=== PATIENT | male | born 1990 | race African-American/Black ===

== ENCOUNTER 2020-09-20 12:17 | Inpatient (IN) | payer MEDICAID ==
[~2020-09-20] VITALS: Ht 182.9 cm; Wt 117.9 kg
[2020-09-20] MEDS ORDERED: BUPR-93 PO (12:30)
[2020-09-20 13:07] LABS: EOSINOPHILS % (AUTO) 1.7 % (1.0-6.0); HEMATOCRIT 40.5 % (41-53); HEMOGLOBIN 13.3 g/dL (13.5-17.5); LYMPHOCYTES # (AUTO) 1.3 K/uL (1.0-4.8); LYMPHOCYTES % (AUTO) 23.9 % (22.0-44.0); MEAN CORPUSCULAR HEMOGLOBIN 25.1 pg (26.0-34.0); MEAN CORPUSCULAR HGB CONC 32.9 G/dL (31.0-37.0); MEAN CORPUSCULAR VOLUME 76 fL (80-100); MONOCYTES # (AUTO) 0.5 K/uL (0.1-1.0); MONOCYTES % (AUTO) 9.5 % (2.0-9.0); NEUTROPHILS # (AUTO) 3.6 K/uL (1.8-7.7); NEUTROPHILS % (AUTO) 63.9 % (40.0-70.0); PLATELET COUNT (AUTO) 363 K/uL (150-450); RED BLOOD CELL COUNT(AUTO) 5.31 MIL/uL (4.50-5.90); RED CELL DISTRIBUTION WIDTH 13.9 % (11.5-14.5)
[2020-09-20 13:11] LABS: COVID AG,FIA SOURCE NASOPHARYNGEAL
[2020-09-20 13:27] LABS: ANION GAP 9 mmol/L (8-16); CALCIUM, TOTAL 9.4 mg/dL (8.8-10.5); CARBON DIOXIDE 27 mmol/L (22-29); CHLORIDE 101 mmol/L (98-107); CREATININE 1.08 mg/dL (0.60-1.30); GLOMERULAR FILTR. RATE CALC > 60 mL/min (>60); GLUCOSE,RANDOM 105 mg/dL (70-110); POTASSIUM 3.9 mmol/L (3.5-5.1); SODIUM SERUM 137 mmol/L (136-145); UREA NITROGEN, BLOOD 10 mg/dL (7-18)
[2020-09-20 13:34] LABS: ALANINE AMINOTRANSFERASE 93 U/L (12-78); ALBUMIN 3.9 g/dL (3.4-5.0); ALKALINE PHOSPHATASE 60 U/L (46-116); ASPARTATE AMINOTRANSFERASE 67 U/L (15-37); BILIRUBIN,TOTAL 0.5 mg/dL (0.1-1.0); TOTAL PROTEIN, SERUM 7.8 g/dL (6.4-8.2)
[2020-09-20 14:24] LABS: AMPHET/METH SCREEN,URINE NEGATIVE (NEGATIVE); BARBITURATE SCREEN, URINE NEGATIVE (NEGATIVE); BENZODIAZEPINES SCREEN,URINE NEGATIVE (NEGATIVE); CANNABINOID SCREEN,URINE NEGATIVE (NEGATIVE); COCAINE SCREEN,URINE NEGATIVE (NEGATIVE); METHADONE SCREEN, URINE NEGATIVE (NEGATIVE); OPIATE SCREEN,URINE NEGATIVE (NEGATIVE)
[2020-09-20 14:26] LABS: PHENCYCLIDINE SCREEN,URINE NEGATIVE (NEGATIVE)
[2020-09-20] MEDS ORDERED: METF-961 PO (16:35)
[2020-09-20] MEDS ORDERED: INFLUENZA VIRUS VACCINE QVS 2020-21 (6MO+)/PF 60 MCG/0.5 ML SYRINGE IM ONE (16:45)
[2020-09-20] MEDS: LORazepam 2 MG TABLET PO PRN (17:21)
[2020-09-20] MEDS: QUEtiapine FUMARATE 100 MG TABLET PO PRN (17:28)
[2020-09-21 03:06] VITALS: BP 148/74
[2020-09-21] MEDS ORDERED: ONDANSETRON HCL 4 MG TABLET PO PRN (08:00)
[2020-09-21] MEDS ORDERED: GuaiFENesin/D-METHORPHAN [SUGAR-FREE] 200-20MG/10 ML SYRUP UDCUP PO PRN (08:00)
[2020-09-21] MEDS ORDERED: PETROLATUM,WHITE 28 GM JELLY TP PRN (08:00)
[2020-09-21] MEDS ORDERED: ACETAMINOPHEN 325 MG TABLET PO PRN (08:00)
[2020-09-21] MEDS ORDERED: ALBUTEROL SULFATE HFA 90 MCG/PUFF 8 GM INHALER IH PRN (08:00)
[2020-09-21] MEDS ORDERED: CloNIDine HCL 0.1 MG TABLET PO PRN (08:00)
[2020-09-21] MEDS ORDERED: DOCUSATE SODIUM 100 MG CAPSULE PO PRN (08:00)
[2020-09-21] MEDS ORDERED: LOPERAMIDE HCL 2 MG CAPSULE PO PRN (08:00)
[2020-09-21] MEDS ORDERED: NICOTINE 14 MG/24 HOUR PATCH TD PRN (08:00)
[2020-09-21] MEDS ORDERED: IBUPROFEN 400 MG TABLET PO PRN (08:00)
[2020-09-21] MEDS ORDERED: MAGNESIUM HYDROXIDE SUSPENSION 30 ML UDCUP PO PRN (08:00)
[2020-09-21 08:21] LABS: BASOPHILS % (AUTO) 0.8 % (0.0-2.0); EOSINOPHILS % (AUTO) 3.1 % (1.0-6.0); HEMATOCRIT 41.4 % (41-53); HEMOGLOBIN 13.4 g/dL (13.5-17.5); LYMPHOCYTES # (AUTO) 1.2 K/uL (1.0-4.8); LYMPHOCYTES % (AUTO) 23.2 % (22.0-44.0); MEAN CORPUSCULAR HEMOGLOBIN 25.3 pg (26.0-34.0); MEAN CORPUSCULAR HGB CONC 32.4 G/dL (31.0-37.0); MEAN CORPUSCULAR VOLUME 78 fL (80-100); MONOCYTES # (AUTO) 0.7 K/uL (0.1-1.0); MONOCYTES % (AUTO) 12.8 % (2.0-9.0); NEUTROPHILS # (AUTO) 3.1 K/uL (1.8-7.7); NEUTROPHILS % (AUTO) 60.1 % (40.0-70.0); PLATELET COUNT (AUTO) 370 K/uL (150-450); RED BLOOD CELL COUNT(AUTO) 5.31 MIL/uL (4.50-5.90); RED CELL DISTRIBUTION WIDTH 14.3 % (11.5-14.5)
[2020-09-21] MEDS: LORazepam 2 MG TABLET PO PRN ×2 (08:43→16:15)
[2020-09-21] MEDS: QUEtiapine FUMARATE 100 MG TABLET PO PRN (08:43)
[2020-09-21 08:59] LABS: ALANINE AMINOTRANSFERASE 87 U/L (12-78); ALBUMIN 3.7 g/dL (3.4-5.0); ALKALINE PHOSPHATASE 59 U/L (46-116); ANION GAP 10 mmol/L (8-16); ASPARTATE AMINOTRANSFERASE 47 U/L (15-37); BILIRUBIN,TOTAL 0.4 mg/dL (0.1-1.0); CALCIUM, TOTAL 9.5 mg/dL (8.8-10.5); CARBON DIOXIDE 27 mmol/L (22-29); CHLORIDE 103 mmol/L (98-107); CHOL/HDL RATIO 3.1 (4.2-7.3); CHOLESTEROL 143 mg/dL (131-200); CREATININE 1.15 mg/dL (0.60-1.30); FREE T4 (FREE THYROXINE) 1.03 ng/dL (0.76-1.46); GLOMERULAR FILTR. RATE CALC > 60 mL/min (>60); GLUCOSE,RANDOM 106 mg/dL (70-110); HDL CHOLESTEROL 46 mg/dL (40-60); LDL CHOL (CALC.) 85 mg/dL (0-130); POTASSIUM 3.9 mmol/L (3.5-5.1); SODIUM SERUM 140 mmol/L (136-145); THYROID STIMULATING HORMONE 1.59 uIU/mL (0.36-3.74); TOTAL PROTEIN, SERUM 7.4 g/dL (6.4-8.2); TRIGLYCERIDES 62 mg/dL (15-150); UREA NITROGEN, BLOOD 11 mg/dL (7-18)
[2020-09-21 09:17] LABS: HEMOGLOBIN A1C 6.3 % (3.8-5.6)
[2020-09-21 10:07] VITALS: BP 124/75
[2020-09-21] MEDS: BuPROPion HCL XL 150 MG ER TABLET PO SCH (11:10)
[2020-09-21] MEDS: PALIPERIDONE 6 MG ER TABLET PO SCH (16:14)
[2020-09-21] MEDS: MetFORMIN HCL 850 MG TABLET PO SCH (17:00)
[2020-09-21] MEDS: DOCOSANOL 10% 2 GM CREAM TP PRN (18:01)
[2020-09-21] MEDS: QUEtiapine FUMARATE 100 MG TABLET PO SCH (20:18)
[2020-09-22] MEDS: DOCOSANOL 10% 2 GM CREAM TP PRN (04:31)
[2020-09-22] MEDS: MetFORMIN HCL 850 MG TABLET PO SCH ×2 (06:31→17:03)
[2020-09-22] MEDS: BuPROPion HCL XL 150 MG ER TABLET PO SCH (08:46)
[2020-09-22 09:22] VITALS: BP 140/84
[2020-09-22] MEDS: PALIPERIDONE 6 MG ER TABLET PO SCH (10:33)
[2020-09-22 16:27] VITALS: BP 130/82
[2020-09-22] MEDS: LORazepam 2 MG TABLET PO PRN (17:03)
[2020-09-22] MEDS: QUEtiapine FUMARATE 100 MG TABLET PO SCH (22:48)
[2020-09-23 01:01] VITALS: BP 109/61
[2020-09-23] MEDS: MetFORMIN HCL 850 MG TABLET PO SCH ×2 (06:26→17:07)
[2020-09-23] MEDS: BuPROPion HCL XL 150 MG ER TABLET PO SCH (08:56)
[2020-09-23 09:08] VITALS: BP 133/85
[2020-09-23] MEDS: PALIPERIDONE 6 MG ER TABLET PO SCH (11:10)
[2020-09-23] MEDS: DOCOSANOL 10% 2 GM CREAM TP PRN (15:49)
[2020-09-23 16:16] VITALS: BP 118/69
[2020-09-23] MEDS: LORazepam 2 MG TABLET PO PRN ×2 (17:07→21:55)
[2020-09-23] MEDS: QUEtiapine FUMARATE 100 MG TABLET PO SCH (20:04)
[2020-09-23] MEDS: ZOLPIDEM TARTRATE 10 MG TABLET PO PRN (21:55)
[2020-09-24 01:04] VITALS: BP 137/87
[2020-09-24] MEDS: MetFORMIN HCL 850 MG TABLET PO SCH ×2 (06:54→16:33)
[2020-09-24] MEDS: BuPROPion HCL XL 150 MG ER TABLET PO SCH (08:12)
[2020-09-24] MEDS: PALIPERIDONE 6 MG ER TABLET PO SCH (08:12)
[2020-09-24] MEDS: LORazepam 2 MG TABLET PO PRN ×2 (08:13→17:41)
[2020-09-24 09:02] VITALS: BP 123/90
[2020-09-24] MEDS: MAG HYDROX/AL HYDROX/SIMETH ES 30 ML SUSPENSION UDCUP PO PRN (14:34)
[2020-09-24 16:33] VITALS: BP_SYST 121; BP_SYST 146; BP_DIAS 81
[2020-09-24] MEDS: QUEtiapine FUMARATE 100 MG TABLET PO SCH (20:09)
[2020-09-25 01:35] VITALS: BP 115/68
[2020-09-25] MEDS: MetFORMIN HCL 850 MG TABLET PO SCH ×3 (06:12→17:00)
[2020-09-25] MEDS: BuPROPion HCL XL 150 MG ER TABLET PO SCH (08:06)
[2020-09-25] MEDS: PALIPERIDONE 6 MG ER TABLET PO SCH (08:06)
[2020-09-25] MEDS: LORazepam 2 MG TABLET PO PRN ×2 (08:06→21:52)
[2020-09-25 08:13] VITALS: BP 128/80
[2020-09-25 12:45] LABS: APPEARANCE,URINE CLEAR (CLEAR); BILIRUBIN,URINE NEGATIVE (NEGATIVE); GLUCOSE, URINE (UA) NEGATIVE (NEGATIVE); KETONES,URINE TRACE mg/dL (NEGATIVE); LEUKOCYTE ESTERASE ,URINE NEGATIVE (NEGATIVE); NITRATE,URINE NEGATIVE (NEGATIVE); OCCULT BLOOD,URINE NEGATIVE (NEGATIVE); PH,URINE 7.5 (5.0-8.0); PROTEIN,URINE TRACE (NEGATIVE); UROBILINOGEN,URINE 0.2 mg/dL (<=1.0)
[2020-09-25 12:52] LABS: AMPHET/METH SCREEN,URINE NEGATIVE (NEGATIVE); BARBITURATE SCREEN, URINE NEGATIVE (NEGATIVE); BENZODIAZEPINES SCREEN,URINE NEGATIVE (NEGATIVE); CANNABINOID SCREEN,URINE NEGATIVE (NEGATIVE); COCAINE SCREEN,URINE NEGATIVE (NEGATIVE); METHADONE SCREEN, URINE NEGATIVE (NEGATIVE); OPIATE SCREEN,URINE NEGATIVE (NEGATIVE)
[2020-09-25 12:57] LABS: PHENCYCLIDINE SCREEN,URINE NEGATIVE (NEGATIVE)
[2020-09-25 13:00] LABS: BACTERIA,URINE None Seen /HPF (None Seen); CALCIUM OXALATE CRYSTALS,UR Moderate /LPF (None Seen); RBC,URINE None Seen /HPF (0-2); SQUAMOUS EPITHELIAL CELL,UR Few /LPF (None Seen); WBC,URINE None Seen /HPF (0-5)
[2020-09-25] MEDS: MAG HYDROX/AL HYDROX/SIMETH ES 30 ML SUSPENSION UDCUP PO PRN (13:44)
[2020-09-25 16:14] VITALS: BP 124/68
[2020-09-25] MEDS: QUEtiapine FUMARATE 100 MG TABLET PO SCH (21:52)
[2020-09-25] MEDS: ZOLPIDEM TARTRATE 10 MG TABLET PO PRN (22:14)
[2020-09-26 05:11] VITALS: BP 118/67
[2020-09-26] MEDS: MetFORMIN HCL 850 MG TABLET PO SCH ×2 (06:36→16:21)
[2020-09-26 08:28] VITALS: BP 136/88
[2020-09-26] MEDS: BuPROPion HCL XL 150 MG ER TABLET PO SCH (08:45)
[2020-09-26] MEDS: PALIPERIDONE 6 MG ER TABLET PO SCH (08:45)
[2020-09-26] MEDS: LORazepam 2 MG TABLET PO PRN ×3 (08:46→20:28)
[2020-09-26 16:18] VITALS: BP 139/81
[2020-09-26] MEDS: QUEtiapine FUMARATE 100 MG TABLET PO SCH (20:28)
[2020-09-27 00:33] VITALS: BP 116/71
[2020-09-27] MEDS: MetFORMIN HCL 850 MG TABLET PO SCH ×2 (06:49→16:14)
[2020-09-27 08:19] VITALS: BP 146/84
[2020-09-27] MEDS: PALIPERIDONE 6 MG ER TABLET PO SCH (09:36)
[2020-09-27] MEDS: BuPROPion HCL XL 150 MG ER TABLET PO SCH (09:36)
[2020-09-27] MEDS: LORazepam 2 MG TABLET PO PRN ×2 (09:36→16:13)
[2020-09-27 17:07] VITALS: BP 145/89
[2020-09-27] MEDS: QUEtiapine FUMARATE 100 MG TABLET PO SCH (20:04)
[2020-09-28 06:34] VITALS: BP 129/82
[2020-09-28] MEDS: MetFORMIN HCL 850 MG TABLET PO SCH (06:58)
[2020-09-28] MEDS: BuPROPion HCL XL 150 MG ER TABLET PO SCH (08:10)
[2020-09-28] MEDS: PALIPERIDONE 6 MG ER TABLET PO SCH (08:10)
[2020-09-28 08:12] VITALS: BP 140/98
[2020-09-28] MEDS ORDERED: BUPR-93 PO (09:25)
[2020-09-28] MEDS ORDERED: PALI6TAB15 PO (09:26)
[2020-09-28] MEDS ORDERED: QUET100T PO (09:27)
== END 2020-09-28 10:20 | disposition home or self-care (01) | DRG 750 ==
LOC: EMS 12:21 → B2S 14:34 → B3A 09-21 13:17 → B2S 09-27 17:03
PROVIDERS: ADMIT Psychiatry & Neurology Child & Adolescent Psychiatry; ATTEND Psychiatry & Neurology Child & Adolescent Psychiatry
DX: F25.0 Schizoaffective disorder, bipolar type (principal); E11.9 Type 2 diabetes mellitus without complications; Z20.822 Contact with and (suspected) exposure to COVID-19; R45.851 Suicidal ideations; E66.9 Obesity, unspecified; Z68.35 Body mass index [BMI] 35.0-35.9, adult; Z88.2 Allergy status to sulfonamides; Z88.8 Allergy status to other drugs, medicaments and biological substances; Z91.5 Personal history of self-harm
CPT/HCPCS: 80307; 83036; 84439; 84443; 87426; 99285; G0480

== ENCOUNTER 2020-10-05 01:52 | Emergency (ER) | payer MEDICAID ==
[~2020-10-05] VITALS: Ht 185.4 cm; Wt 131.8 kg
[~2020-10-05 01:52] MED LIST: BUPR-93 PO; METF-961 PO; PALI6TAB15 PO; QUET100T PO
[2020-10-05] MEDS ORDERED: TRAZ-257 PO (02:33)
[2020-10-05 02:35] VITALS: BP 146/86
[2020-10-05 02:50] LABS: BASOPHILS % (AUTO) 0.6 % (0.0-2.0); EOSINOPHILS % (AUTO) 0.4 % (1.0-6.0); HEMATOCRIT 41.9 % (41-53); HEMOGLOBIN 13.4 g/dL (13.5-17.5); LYMPHOCYTES % (AUTO) 13.5 % (22.0-44.0); MEAN CORPUSCULAR HEMOGLOBIN 24.8 pg (26.0-34.0); MEAN CORPUSCULAR HGB CONC 31.9 G/dL (31.0-37.0); MEAN CORPUSCULAR VOLUME 78 fL (80-100); MONOCYTES # (AUTO) 0.7 K/uL (0.1-1.0); MONOCYTES % (AUTO) 8.9 % (2.0-9.0); NEUTROPHILS # (AUTO) 5.9 K/uL (1.8-7.7); NEUTROPHILS % (AUTO) 76.6 % (40.0-70.0); PLATELET COUNT (AUTO) 361 K/uL (150-450); RED BLOOD CELL COUNT(AUTO) 5.38 MIL/uL (4.50-5.90); RED CELL DISTRIBUTION WIDTH 13.8 % (11.5-14.5)
[2020-10-05 02:57] LABS: AMPHET/METH SCREEN,URINE NEGATIVE (NEGATIVE); BARBITURATE SCREEN, URINE NEGATIVE (NEGATIVE); BENZODIAZEPINES SCREEN,URINE NEGATIVE (NEGATIVE); CANNABINOID SCREEN,URINE NEGATIVE (NEGATIVE); COCAINE SCREEN,URINE NEGATIVE (NEGATIVE); METHADONE SCREEN, URINE NEGATIVE (NEGATIVE); OPIATE SCREEN,URINE NEGATIVE (NEGATIVE)
[2020-10-05 02:58] LABS: PHENCYCLIDINE SCREEN,URINE NEGATIVE (NEGATIVE)
[2020-10-05 02:59] LABS: ANION GAP 8 mmol/L (8-16); CALCIUM, TOTAL 9.8 mg/dL (8.8-10.5); CARBON DIOXIDE 30 mmol/L (22-29); CHLORIDE 100 mmol/L (98-107); CREATININE 1.19 mg/dL (0.60-1.30); GLOMERULAR FILTR. RATE CALC > 60 mL/min (>60); GLUCOSE,RANDOM 139 mg/dL (70-110); SODIUM SERUM 138 mmol/L (136-145); UREA NITROGEN, BLOOD 12 mg/dL (7-18)
[2020-10-05] MEDS ORDERED: LORazepam 2 MG TABLET PO ONE (03:00)
[2020-10-05] MEDS ORDERED: HALOPERIDOL 5 MG TABLET PO ONE (03:00)
[2020-10-05 03:04] LABS: ALANINE AMINOTRANSFERASE 80 U/L (12-78); ALBUMIN 3.9 g/dL (3.4-5.0); ALKALINE PHOSPHATASE 67 U/L (46-116); ASPARTATE AMINOTRANSFERASE 42 U/L (15-37); BILIRUBIN,TOTAL 0.4 mg/dL (0.1-1.0); TOTAL PROTEIN, SERUM 7.7 g/dL (6.4-8.2)
== END 2020-10-05 03:13 | disposition home or self-care (01) ==
LOC: EMS 01:53
DX: F20.9 Schizophrenia, unspecified (principal); F32.9 Major depressive disorder, single episode, unspecified
CPT/HCPCS: 36415; 80053; 80307; 85025; 99284; G0480

== ENCOUNTER 2020-10-11 01:38 | Emergency (ER) | payer MEDICAID ==
[~2020-10-11] VITALS: Ht 182.9 cm; Wt 131.8 kg
[~2020-10-11 01:38] MED LIST changes: -PALI6TAB15 PO; +TRAZ-257 PO
[2020-10-11 02:24] LABS: BASOPHILS % (AUTO) 0.9 % (0.0-2.0); EOSINOPHILS % (AUTO) 1.7 % (1.0-6.0); HEMATOCRIT 43.5 % (41-53); HEMOGLOBIN 14.3 g/dL (13.5-17.5); LYMPHOCYTES # (AUTO) 1.8 K/uL (1.0-4.8); LYMPHOCYTES % (AUTO) 25.7 % (22.0-44.0); MEAN CORPUSCULAR HEMOGLOBIN 25.2 pg (26.0-34.0); MEAN CORPUSCULAR HGB CONC 32.8 G/dL (31.0-37.0); MEAN CORPUSCULAR VOLUME 77 fL (80-100); MONOCYTES # (AUTO) 0.7 K/uL (0.1-1.0); NEUTROPHILS # (AUTO) 4.4 K/uL (1.8-7.7); NEUTROPHILS % (AUTO) 61.7 % (40.0-70.0); PLATELET COUNT (AUTO) 343 K/uL (150-450); RED BLOOD CELL COUNT(AUTO) 5.65 MIL/uL (4.50-5.90); RED CELL DISTRIBUTION WIDTH 13.9 % (11.5-14.5)
[2020-10-11 02:36] LABS: AMPHET/METH SCREEN,URINE NEGATIVE (NEGATIVE); BARBITURATE SCREEN, URINE NEGATIVE (NEGATIVE); BENZODIAZEPINES SCREEN,URINE NEGATIVE (NEGATIVE); CANNABINOID SCREEN,URINE NEGATIVE (NEGATIVE); COCAINE SCREEN,URINE NEGATIVE (NEGATIVE); METHADONE SCREEN, URINE NEGATIVE (NEGATIVE); OPIATE SCREEN,URINE NEGATIVE (NEGATIVE)
[2020-10-11 02:37] LABS: PHENCYCLIDINE SCREEN,URINE NEGATIVE (NEGATIVE)
[2020-10-11 03:07] LABS: ALANINE AMINOTRANSFERASE 54 U/L (12-78); ALBUMIN 3.9 g/dL (3.4-5.0); ALKALINE PHOSPHATASE 59 U/L (46-116); ANION GAP 8 mmol/L (8-16); ASPARTATE AMINOTRANSFERASE 29 U/L (15-37); BILIRUBIN,TOTAL 0.4 mg/dL (0.1-1.0); CALCIUM, TOTAL 9.6 mg/dL (8.8-10.5); CARBON DIOXIDE 29 mmol/L (22-29); CHLORIDE 102 mmol/L (98-107); CREATININE 1.13 mg/dL (0.60-1.30); GLOMERULAR FILTR. RATE CALC > 60 mL/min (>60); GLUCOSE,RANDOM 120 mg/dL (70-110); POTASSIUM 3.8 mmol/L (3.5-5.1); SODIUM SERUM 139 mmol/L (136-145); TOTAL PROTEIN, SERUM 7.6 g/dL (6.4-8.2); UREA NITROGEN, BLOOD 17 mg/dL (7-18)
[2020-10-11] MEDS ORDERED: OLANZapine 5 MG TABLET PO ONE (03:15)
[2020-10-11] MEDS ORDERED: ACETAMINOPHEN 500 MG TABLET PO ONE (04:15)
[2020-10-11 08:19] VITALS: BP 121/87
== END 2020-10-11 09:52 | disposition home or self-care (01) ==
LOC: EMS 01:39
DX: F25.9 Schizoaffective disorder, unspecified (principal); F32.9 Major depressive disorder, single episode, unspecified; Z88.1 Allergy status to other antibiotic agents; Z91.018 Allergy to other foods; Z79.84 Long term (current) use of oral hypoglycemic drugs
CPT/HCPCS: 36415; 80053; 80307; 85025; 99284; G0480